=== PATIENT | male | born 1980 | race Two or more races ===

== ENCOUNTER 2017-02-03 19:55 | Emergency (ER) | payer OTHER ==
[~2017-02-03] VITALS: Ht 180.3 cm; Wt 95.5 kg
[2017-02-03 20:45] LABS: BASO % 0.5 % (0.0-1.0); EOS # 0.4 K/mm3 (0.0-0.50); EOS % 5.6 % (0.0-3.0); LARGE UNSTAINED CELL # 0.1 K/mm3 (0.0-0.4); LARGE UNSTAINED CELL % 1.6 % (0.0-4.0); LYMPH # 2.2 K/mm3 (1.5-4.5); LYMPH % 30.6 % (24.0-44.0); MEAN CORPUSCULAR HEMOGLOBIN 31.7 pg (27.0-33.0); MEAN CORPUSCULAR HGB CONC 35.9 g/dl (32.0-36.5); MEAN CORPUSCULAR VOLUME 88.4 fl (80.0-96.0); MONO # 0.5 K/mm3 (0.0-0.8); MONO % 6.9 % (0.0-5.0); NEUTROPHILS # 3.8 K/mm3 (1.8-7.7); NEUTROPHILS % 54.8 % (36.0-66.0); PLATELET COUNT, AUTOMATED 211 k/mm3 (150-450); RED CELL DISTRIBUTION WIDTH 12.5 % (11.5-14.5); WHITE BLOOD COUNT 6.8 K/mm3 (4.0-10.0)
[2017-02-03 20:57] LABS: ALBUMIN 3.7 GM/DL (3.2-5.2); ALKALINE PHOSPHATASE 121 U/L (45-117); ALT/SGPT 26 U/L (12-78); AST/SGOT 21 U/L (15-37); BILIRUBIN,DIRECT 0.1 MG/DL (0.0-0.2); BILIRUBIN,TOTAL 0.5 MG/DL (0.2-1.0); BLOOD UREA NITROGEN 6 MG/DL (7-18); CALCIUM LEVEL 8.4 MG/DL (8.5-10.1); CARBON DIOXIDE LEVEL 28 MEQ/L (21-32); CHLORIDE LEVEL 108 MEQ/L (98-107); CREATININE FOR GFR 1.07 MG/DL (0.70-1.30); GLUCOSE, FASTING 106 MG/DL (70-105); POTASSIUM SERUM 3.9 MEQ/L (3.5-5.1); SODIUM LEVEL 141 MEQ/L (136-145)
[2017-02-03 21:02] LABS: ANION GAP 5 MEQ/L (8-16)
[2017-02-03 21:03] LABS: ALBUMIN/GLOBULIN RATIO 1.12 (1.00-1.93)
[2017-02-03] MEDS ORDERED: KETOROLAC 30 MG/ML VIAL (J1885) IV ONE (21:15)
[2017-02-03] MEDS ORDERED: NAPR500T PO (22:46)
[2017-02-03 22:48] VITALS: BP 125/59
--- NOTE | 2017-02-04 06:45 | REP ---
PA and lateral chest: There are no comparisons. The lung iyer are clear. The cardiac size is normal The maurilio, mediastinum, and bony thorax are unremarkable. Impression: Negative PA and lateral chest. Signed by Kirk Bruno MD 02/04/2017 06:37 A
--- NOTE | 2017-02-04 19:39 | ECGEPIP ---
Stationary ECG Study [facility] - ED Test Date: 2017-02-03 Pat Name: DANE DE Department: Room: - Gender: M Extractions Technician: narda : 1980 Requested By: KAREN Maguire Order Number: [id number] Reading MD: Wes Duke Measurements Intervals [place] Rate: 67 P: 41 FL: 145 QRS: 41 QRSD: 88 T: 41 QT: 390 QTc: 413 Interpretive Statements SINUS RHYTHM Electronically Signed On 02-04-2017 19:38:45 EDT by Wes Duke
== END 2017-02-03 22:56 | disposition home or self-care (01) ==
LOC: M ED 19:55
DX: R07.89 Other chest pain (principal)
CPT/HCPCS: 36415; 71020; 80048; 80076; 82550; 82553; 83690; 85025; 85379; 93005; 93041; 94760; 96374; 99285; J1885